=== PATIENT | male | born 1940 | race Caucasian/White ===

== ENCOUNTER 2017-11-15 07:57 | Day surgery (SDC) | payer OTHER ==
[~2017-11-15 07:57] MED LIST: BACLOFEN20 MG PO; CALCIUM + VITAM1 TAB PO; CHOLESTYRAMINE P4 GM PO; CITALOPRAM HBR40 MG PO; CITALOPRAM10 MG/5 ML PO; FOLIC ACID1 MG PO; GABAPENTIN600 MG PO; LOPERAMIDE2 M1 PO; PROPRANOLOL HCL10 MG PO; QUETIAPINE FUM300 MG PO; QUETIAPINE FUMA25 MG PO; RANITIDINE HCL150 M1 PO; RESTORIL30 M1 PO; TYLENOL32 MG/ML PO; ZYLOPRIM100 M1 PO; [UNRECOGNIZED DRUG - OTHER]
== END 2017-11-15 14:00 | disposition home or self-care (01) ==
LOC: CIR.AMB 07:57
DX: K62.4 Stenosis of anus and rectum (principal)